=== PATIENT | male | born 1960 | race Asian ===

== ENCOUNTER 2023-02-08 21:53 | Emergency (ER) | payer OTHER ==
[~2023-02-08] VITALS: Ht 175.3 cm; Wt 74.8 kg
[2023-02-08 21:53] VITALS: TEMP 98.6
[~2023-02-08 21:53] MED LIST: AMLO2.5T PO; CYCL10TA35 PO; MELOXICAM7.5 MG OR; TERAZOSIN5 MG OR
[2023-02-08 22:16] LABS: PLATELET COUNT 170 K/uL (142-355)
[2023-02-08 22:26] LABS: POTASSIUM 3.7 mmol/L (3.6-5.2)
[2023-02-08 23:20] VITALS: BP 141/81
== END 2023-02-08 23:20 ==
LOC: ED 21:53
PROVIDERS: Family Medicine
DX: S13.4XXA Sprain of ligaments of cervical spine, initial encounter (principal); V89.2XXA Person injured in unspecified motor-vehicle accident, traffic, initial encounter; F14.10 Cocaine abuse, uncomplicated; S06.0X0A Concussion without loss of consciousness, initial encounter; Z72.0 Tobacco use; F12.10 Cannabis abuse, uncomplicated
CPT/HCPCS: 51702; 80053; 80307; 85027; 93005; 99283